=== PATIENT | male | born 1960 | race African-American/Black ===

== ENCOUNTER 2019-09-01 15:20 | Inpatient (IN) | payer OTHER ==
[~2019-09-01] VITALS: Ht 177.8 cm; Wt 109.3 kg
[~2019-09-01 15:20] MED LIST: AMIL5TAB8 PO; ATOR20TA PO; CLOP75TA4 PO; LISI10TA5 PO; LISI40TA4 PO; LOVA20TA2 PO; METF-416 PO
[2019-09-01] MEDS ORDERED: ONDANSETRON HCL 4MG/2ML INJ IV STA (17:15)
[2019-09-01] MEDS ORDERED: SODIUM CHLORIDE 0.9% 1000ML BAG (SEPSIS BOLUS) IV ONE (17:15)
[2019-09-01] MEDS ORDERED: MORPHINE SULFATE 4 MG/ML CPJ (NOT FOR IM USE) IV STA (17:15)
[2019-09-01] MEDS ORDERED: KETOROLAC 30MG/ML VIAL IV STA (17:15)
[2019-09-01] MEDS ORDERED: LEVOFLOXACIN 750MG PREMIX 150 ML IV ONE (17:15)
[2019-09-01 17:35] LABS: CHLORIDE 102 mEq/L (98-107); HEMATOCRIT. 35.1 % (42.0-52.0); HEMOGLOBIN. 11.3 g/dL (14.0-18.0); MEAN CORPUSCULAR VOLUME 89.7 fL (80.0-94.0); MEAN PLATELET VOLUME 9.7 fl (7.4-10.4); PLATELET 187 x1000/uL (130-400); RED BLOOD CELL COUNT 3.91 mill/uL (4.7-6.1); RED CELL DISTRIBUTION WIDTH 13.7 % (11.6-14.6)
[2019-09-01 17:37] LABS: PROTHROMBIN TIME 10.6 sec (9.6-11.0)
[2019-09-01 17:53] LABS: PLATELET ESTIMATE NORMAL
[2019-09-01 19:45] LABS: CLARITY URINE CLOUDY (CLEAR); COLOR URINE YELLOW (YELLOW); KETONES URINE NEGATIVE (NEGATIVE); LEUKOCYTE ESTERASE URINE TRACE (NEGATIVE); NITRITE URINE NEGATIVE (NEGATIVE); OCCULT BLOOD URINE 1+ (NEGATIVE); PROTEIN URINE 1+ (NEGATIVE); SPECIFIC GRAVITY URINE 1.029 (1.005-1.030)
[2019-09-01] MEDS ORDERED: ACETAMINOPHEN 650MG/20.3ML UDC PO ONE (19:45)
[2019-09-01] MEDS ORDERED: GUAIFENESIN 200MG/10ML SUGAR FREE UDC PO PRN (21:30)
[2019-09-01] MEDS ORDERED: PIPERACILLIN/TAZ 3.375G PREMIX 50 ML IV SCH (21:30)
[2019-09-01] MEDS ORDERED: ONDANSETRON HCL 4MG/2ML INJ IV PRN (21:30)
[2019-09-01] MEDS ORDERED: IPRATROPIUM/ALBUTEROL 0.5-3(2.5)MG/3ML NEB NEB PRN (21:30)
[2019-09-01] MEDS ORDERED: LORAZEPAM 2MG/ML CPJ IV PRN (21:30)
[2019-09-01] MEDS ORDERED: DOCUSATE SODIUM 100MG CAPSULE PO PRN (21:30)
[2019-09-01] MEDS ORDERED: DIPHENHYDRAMINE 50MG/ML VIAL IV PRN (21:30)
[2019-09-01] MEDS ORDERED: NA PHOS,M-B/NA PHOS,DI-BA ENEMA 118ML PR PRN (21:30)
[2019-09-01] MEDS ORDERED: INSULIN LISPRO 100 UNITS/ML SUBCUT ONE (21:45)
[2019-09-01] MEDS ORDERED: MORPHINE SULFATE 2 MG/ML CPJ (NOT FOR IM USE) IV PRN (22:22)
[2019-09-01 22:24] VITALS: BP 124/61
[2019-09-01 22:30] VITALS: BP 132/61
[2019-09-01] MEDS ORDERED: DEXTROSE 50% WATER 50ML SYRINGE IV PRN (23:15)
[2019-09-01] MEDS: SODIUM CHLORIDE 0.45% 1,000 ML IV SCH (23:28)
[2019-09-01] MEDS: PIPERACILLIN/TAZOBACTAM 3.375 G in DEXT 5% WATER 100 ML IV SCH (23:28)
[2019-09-01 23:51] LABS: CHLORIDE 110 mEq/L (98-107)
[2019-09-02] VITALS (12 sets, daily range): BP systolic 99–169; BP diastolic 60–106
[2019-09-02] MEDS: IPRATROPIUM BROMIDE (0.02%) 0.5MG/2.5ML NEB HHN SCH (01:01)
[2019-09-02] MEDS: CLONIDINE 0.1MG TABLET PO PRN ×2 (03:59→13:41)
[2019-09-02] MEDS: ACETAMINOPHEN 325MG TABLET PO PRN ×3 (05:49→18:47)
[2019-09-02] MEDS ORDERED: DEXTROSE 50% WATER 50ML SYRINGE IV PRN (06:45)
[2019-09-02] MEDS: PIPERACILLIN/TAZOBACTAM 3.375 G in DEXT 5% WATER 100 ML IV SCH ×3 (06:52→20:43)
[2019-09-02] MEDS ORDERED: BLOOD SUGAR DIAGNOSTIC STRIP TEST SCH (07:30)
[2019-09-02] MEDS: BLOOD SUGAR DIAGNOSTIC STRIP TEST SCH ×4 (07:40→20:32)
[2019-09-02] MEDS ORDERED: INSULIN LISPRO 100 UNITS/ML SUBCUT SCH (08:00)
[2019-09-02] MEDS: ASPIRIN 81MG EC TABLET PO SCH (08:29)
[2019-09-02] MEDS: ENOXAPARIN 30MG/0.3ML SYR SUBCUT SCH ×2 (08:29→20:44)
[2019-09-02] MEDS: INSULIN LISPRO 100 UNITS/ML SUBCUT SCH ×4 (08:31→20:43)
[2019-09-02 12:15] LABS: HEMATOCRIT. 32.6 % (42.0-52.0); HEMOGLOBIN. 10.4 g/dL (14.0-18.0); MEAN CORPUSCULAR HEMOGLOBIN 28.8 pg (28.0-32.0); MEAN CORPUSCULAR VOLUME 89.9 fL (80.0-94.0); PLATELET 170 x1000/uL (130-400); RED BLOOD CELL COUNT 3.63 mill/uL (4.7-6.1); RED CELL DISTRIBUTION WIDTH 13.6 % (11.6-14.6)
[2019-09-02 12:57] LABS: CHLORIDE 107 mEq/L (98-107)
[2019-09-02 13:05] LABS: HDL CHOLESTEROL 17 mg/dL (40-59)
[2019-09-02 13:10] LABS: LDL CHOLESTEROL 68 mg/dL (5-100)
[2019-09-02 13:12] LABS: T4 FREE 1.27 ng/dL (0.76-1.46)
[2019-09-02] MEDS: HYDRALAZINE HCL 50MG TABLET PO SCH ×2 (13:42→20:44)
[2019-09-02] MEDS: HYDROCODONE/ACETAMINOPHEN 5/325MG TABLET PO PRN (13:43)
[2019-09-02] MEDS: SODIUM CHLORIDE 0.45% 1,000 ML IV SCH (13:45)
[2019-09-02] MEDS: CLOPIDOGREL 75MG TABLET PO SCH (13:45)
[2019-09-02 15:24] LABS: PLATELET ESTIMATE NORMAL
[2019-09-02] MEDS ORDERED: AMILORIDE HCL 5 MG TABLET PO SCH (16:00)
[2019-09-02 16:33] LABS: CREATINE KINASE 169 IU/L (39-308)
[2019-09-02 16:34] LABS: CREATINE KINASE MB FRACTION < 1.0 ng/mL (0.5-3.6)
[2019-09-02] MEDS: LISINOPRIL 40MG TABLET PO SCH (16:35)
[2019-09-02] MEDS: ATORVASTATIN CALCIUM 20MG TABLET PO SCH (20:43)
[2019-09-02] MEDS: GUAIFENESIN 600MG ER TABLET PO SCH (20:44)
[2019-09-03] VITALS (11 sets, daily range): BP systolic 92–155; BP diastolic 55–95
[2019-09-03] MEDS: ACETAMINOPHEN 325MG TABLET PO PRN ×2 (05:03→20:43)
[2019-09-03] MEDS: PIPERACILLIN/TAZOBACTAM 3.375 G in DEXT 5% WATER 100 ML IV SCH ×3 (05:03→21:58)
[2019-09-03] MEDS: SODIUM CHLORIDE 0.45% 1,000 ML IV SCH ×2 (05:04→16:48)
[2019-09-03] MEDS: HYDRALAZINE HCL 50MG TABLET PO SCH ×3 (05:04→22:00)
[2019-09-03 07:05] LABS: BASOPHILS % 0.7 % (0.0-2.0); EOSINOPHILS % 0.6 % (0.0-5.0); HEMATOCRIT. 30.5 % (42.0-52.0); HEMOGLOBIN. 9.9 g/dL (14.0-18.0); LYMPHOCYTES % 7.9 % (20.0-50.0); MEAN CORPUSCULAR HEMOGLOBIN 28.9 pg (28.0-32.0); MEAN CORPUSCULAR VOLUME 88.8 fL (80.0-94.0); MEAN PLATELET VOLUME 9.9 fl (7.4-10.4); MONOCYTES % 12.3 % (2.0-8.0); NEUTROPHILS % 78.5 % (40.0-76.0); PLATELET 177 x1000/uL (130-400); RED BLOOD CELL COUNT 3.43 mill/uL (4.7-6.1); RED CELL DISTRIBUTION WIDTH 13.6 % (11.6-14.6)
[2019-09-03 07:16] LABS: CHLORIDE 109 mEq/L (98-107)
[2019-09-03 07:30] LABS: CREATINE KINASE MB FRACTION < 1.0 ng/mL (0.5-3.6)
[2019-09-03] MEDS: BLOOD SUGAR DIAGNOSTIC STRIP TEST SCH ×4 (07:30→21:00)
[2019-09-03] MEDS: IPRATROPIUM BROMIDE (0.02%) 0.5MG/2.5ML NEB HHN SCH ×3 (08:00→12:47)
[2019-09-03] MEDS ORDERED: AMILORIDE HCL 5 MG TABLET PO SCH (09:00)
[2019-09-03] MEDS: ASPIRIN 81MG EC TABLET PO SCH (09:56)
[2019-09-03] MEDS: GUAIFENESIN 600MG ER TABLET PO SCH ×2 (09:56→20:42)
[2019-09-03] MEDS: LISINOPRIL 40MG TABLET PO SCH (09:57)
[2019-09-03] MEDS: ENOXAPARIN 30MG/0.3ML SYR SUBCUT SCH (09:57)
[2019-09-03] MEDS: INSULIN LISPRO 100 UNITS/ML SUBCUT SCH ×4 (09:58→20:45)
[2019-09-03] MEDS: CLOPIDOGREL 75MG TABLET PO SCH (10:00)
[2019-09-03] MEDS: ATORVASTATIN CALCIUM 20MG TABLET PO SCH (20:42)
[2019-09-03] MEDS: IPRATROPIUM/ALBUTEROL 0.5-3(2.5)MG/3ML NEB HHN SCH (21:44)
[2019-09-04] VITALS (10 sets, daily range): BP systolic 117–175; BP diastolic 58–101
[2019-09-04] MEDS: IPRATROPIUM/ALBUTEROL 0.5-3(2.5)MG/3ML NEB HHN SCH ×4 (02:51→20:59)
[2019-09-04] MEDS: SODIUM CHLORIDE 0.45% 1,000 ML IV SCH ×2 (03:47→16:40)
[2019-09-04] MEDS: HYDROCODONE/ACETAMINOPHEN 5/325MG TABLET PO PRN ×3 (03:53→18:59)
[2019-09-04] MEDS: HYDRALAZINE HCL 50MG TABLET PO SCH ×3 (05:39→21:37)
[2019-09-04] MEDS: PIPERACILLIN/TAZOBACTAM 3.375 G in DEXT 5% WATER 100 ML IV SCH ×3 (05:39→21:37)
[2019-09-04 07:44] LABS: BASOPHILS % 0.6 % (0.0-2.0); HEMOGLOBIN. 10.1 g/dL (14.0-18.0); LYMPHOCYTES % 12.7 % (20.0-50.0); MEAN CORPUSCULAR HEMOGLOBIN 28.9 pg (28.0-32.0); MEAN CORPUSCULAR VOLUME 89.1 fL (80.0-94.0); MEAN PLATELET VOLUME 9.9 fl (7.4-10.4); MONOCYTES % 12.9 % (2.0-8.0); NEUTROPHILS % 71.8 % (40.0-76.0); PLATELET 199 x1000/uL (130-400); RED BLOOD CELL COUNT 3.48 mill/uL (4.7-6.1); RED CELL DISTRIBUTION WIDTH 13.7 % (11.6-14.6)
[2019-09-04] MEDS: BLOOD SUGAR DIAGNOSTIC STRIP TEST SCH ×4 (08:20→21:37)
[2019-09-04] MEDS: INSULIN LISPRO 100 UNITS/ML SUBCUT SCH ×4 (08:32→21:38)
[2019-09-04 09:07] LABS: COMPLEMENT C3 172 mg/dL (82-167)
[2019-09-04] MEDS: MAGNESIUM/ALUMINUM HYDROXIDE/SIMETHICONE 30ML UDC PO PRN (10:39)
[2019-09-04] MEDS: LISINOPRIL 40MG TABLET PO SCH (10:40)
[2019-09-04] MEDS: GUAIFENESIN 600MG ER TABLET PO SCH ×2 (10:40→21:37)
[2019-09-04] MEDS: ASPIRIN 81MG EC TABLET PO SCH (10:41)
[2019-09-04] MEDS: CLOPIDOGREL 75MG TABLET PO SCH (10:48)
[2019-09-04 13:09] LABS: ANTI-NUCLEAR ANTIBODIES DIRECT Negative (Negative)
[2019-09-04] MEDS: CLONIDINE 0.1MG TABLET PO PRN (17:36)
[2019-09-04] MEDS: ATORVASTATIN CALCIUM 20MG TABLET PO SCH (21:37)
[2019-09-04] MEDS: INSULIN GLARGINE UD 100 UNITS/ML SYR SUBCUT SCH (21:38)
[2019-09-05] VITALS (13 sets, daily range): BP systolic 141–187; BP diastolic 66–135
[2019-09-05] MEDS: IPRATROPIUM/ALBUTEROL 0.5-3(2.5)MG/3ML NEB HHN SCH ×4 (01:56→21:31)
[2019-09-05] MEDS: HYDROCODONE/ACETAMINOPHEN 5/325MG TABLET PO PRN (04:42)
[2019-09-05] MEDS: PIPERACILLIN/TAZOBACTAM 3.375 G in DEXT 5% WATER 100 ML IV SCH (05:14)
[2019-09-05] MEDS: HYDRALAZINE HCL 50MG TABLET PO SCH ×3 (05:14→21:35)
[2019-09-05] MEDS: SODIUM CHLORIDE 0.45% 1,000 ML IV SCH (06:36)
[2019-09-05] MEDS: BLOOD SUGAR DIAGNOSTIC STRIP TEST SCH ×4 (06:36→21:35)
[2019-09-05] MEDS: GUAIFENESIN 600MG ER TABLET PO SCH ×2 (09:17→21:34)
[2019-09-05] MEDS: ASPIRIN 81MG EC TABLET PO SCH (09:17)
[2019-09-05] MEDS: CLOPIDOGREL 75MG TABLET PO SCH (09:17)
[2019-09-05] MEDS: LISINOPRIL 40MG TABLET PO SCH (09:20)
[2019-09-05] MEDS: INSULIN LISPRO 100 UNITS/ML SUBCUT SCH ×4 (09:23→21:46)
[2019-09-05] MEDS ORDERED: MEROPENEM 1,000 MG in SODIUM CHLORIDE 0.9% 100 ML IV SCH (10:15)
[2019-09-05] MEDS: CLONIDINE 0.1MG TABLET PO PRN ×2 (11:20→17:55)
[2019-09-05] MEDS: MEROPENEM 500MG in NORMAL SALINE 50ML IV SCH ×2 (11:21→21:34)
[2019-09-05 15:35] LABS: HEMATOCRIT 34.4 % (42.0-52.0); MEAN CORPUSCULAR HEMOGLOBIN 28.8 pg (28.0-32.0); MEAN CORPUSCULAR VOLUME 89.8 fL (80.0-94.0); PLATELET 223 x1000/uL (130-400); RED BLOOD CELL COUNT 3.83 mill/uL (4.7-6.1)
[2019-09-05] MEDS: ATORVASTATIN CALCIUM 20MG TABLET PO SCH (21:35)
[2019-09-05] MEDS: INSULIN GLARGINE UD 100 UNITS/ML SYR SUBCUT SCH (21:47)
[2019-09-06] VITALS (14 sets, daily range): BP systolic 130–185; BP diastolic 60–94
[2019-09-06] MEDS: IPRATROPIUM/ALBUTEROL 0.5-3(2.5)MG/3ML NEB HHN SCH ×4 (02:00→21:12)
[2019-09-06] MEDS: MEROPENEM 500MG in NORMAL SALINE 50ML IV SCH ×3 (05:19→21:18)
[2019-09-06] MEDS: HYDRALAZINE HCL 50MG TABLET PO SCH ×3 (05:19→21:19)
[2019-09-06] MEDS: HYDROCODONE/ACETAMINOPHEN 5/325MG TABLET PO PRN (06:35)
[2019-09-06] MEDS: BLOOD SUGAR DIAGNOSTIC STRIP TEST SCH ×4 (06:36→21:29)
[2019-09-06 06:46] LABS: HEMATOCRIT. 33.3 % (42.0-52.0); HEMOGLOBIN. 10.8 g/dL (14.0-18.0); MEAN CORPUSCULAR HEMOGLOBIN 29.2 pg (28.0-32.0); MEAN CORPUSCULAR VOLUME 89.7 fL (80.0-94.0); MEAN PLATELET VOLUME 9.5 fl (7.4-10.4); PLATELET 233 x1000/uL (130-400); RED BLOOD CELL COUNT 3.71 mill/uL (4.7-6.1); RED CELL DISTRIBUTION WIDTH 13.8 % (11.6-14.6)
[2019-09-06 07:08] LABS: PHOSPHORUS 3.7 mg/dL (2.5-4.9)
[2019-09-06 08:37] LABS: NUCLEATED RED BLOOD CELLS 1 /100 WBC; PLATELET ESTIMATE NORMAL
[2019-09-06] MEDS: CLOPIDOGREL 75MG TABLET PO SCH (08:37)
[2019-09-06] MEDS: GUAIFENESIN 600MG ER TABLET PO SCH ×2 (08:37→21:19)
[2019-09-06] MEDS: INSULIN LISPRO 100 UNITS/ML SUBCUT SCH ×4 (08:38→21:20)
[2019-09-06] MEDS: ASPIRIN 81MG EC TABLET PO SCH (08:38)
[2019-09-06] MEDS: LISINOPRIL 40MG TABLET PO SCH (08:39)
[2019-09-06] MEDS: CLONIDINE 0.1MG TABLET PO PRN ×2 (13:23→18:40)
[2019-09-06] MEDS: ATORVASTATIN CALCIUM 20MG TABLET PO SCH (21:19)
[2019-09-06] MEDS: INSULIN GLARGINE UD 100 UNITS/ML SYR SUBCUT SCH (21:20)
[2019-09-07] VITALS (12 sets, daily range): BP systolic 115–153; BP diastolic 47–86
[2019-09-07] MEDS: IPRATROPIUM/ALBUTEROL 0.5-3(2.5)MG/3ML NEB HHN SCH ×4 (01:22→21:16)
[2019-09-07] MEDS: MEROPENEM 500MG in NORMAL SALINE 50ML IV SCH ×3 (05:20→23:18)
[2019-09-07] MEDS: HYDRALAZINE HCL 50MG TABLET PO SCH ×3 (05:20→23:18)
[2019-09-07] MEDS: MAGNESIUM/ALUMINUM HYDROXIDE/SIMETHICONE 30ML UDC PO PRN (05:32)
[2019-09-07] MEDS: BLOOD SUGAR DIAGNOSTIC STRIP TEST SCH ×4 (06:33→20:18)
[2019-09-07] MEDS: INSULIN LISPRO 100 UNITS/ML SUBCUT SCH ×4 (09:02→20:19)
[2019-09-07] MEDS: ASPIRIN 81MG EC TABLET PO SCH (09:14)
[2019-09-07] MEDS: CLOPIDOGREL 75MG TABLET PO SCH (09:14)
[2019-09-07] MEDS: GUAIFENESIN 600MG ER TABLET PO SCH ×2 (09:14→20:18)
[2019-09-07] MEDS: LISINOPRIL 40MG TABLET PO SCH (09:14)
[2019-09-07] MEDS: CLONIDINE 0.1MG TABLET PO PRN (18:44)
[2019-09-07] MEDS: ATORVASTATIN CALCIUM 20MG TABLET PO SCH (20:18)
[2019-09-07] MEDS: INSULIN GLARGINE UD 100 UNITS/ML SYR SUBCUT SCH (22:00)
[2019-09-08] VITALS (17 sets, daily range): BP systolic 88–159; BP diastolic 33–98
[2019-09-08] MEDS: IPRATROPIUM/ALBUTEROL 0.5-3(2.5)MG/3ML NEB HHN SCH ×3 (01:53→15:02)
[2019-09-08] MEDS: MEROPENEM 500MG in NORMAL SALINE 50ML IV SCH ×2 (06:21→13:13)
[2019-09-08] MEDS: HYDRALAZINE HCL 50MG TABLET PO SCH (06:22)
[2019-09-08 06:24] LABS: HEMATOCRIT. 30.4 % (42.0-52.0); HEMOGLOBIN. 9.9 g/dL (14.0-18.0); MEAN CORPUSCULAR HEMOGLOBIN 28.9 pg (28.0-32.0); MEAN CORPUSCULAR VOLUME 88.7 fL (80.0-94.0); MEAN PLATELET VOLUME 9.1 fl (7.4-10.4); PLATELET 259 x1000/uL (130-400); RED BLOOD CELL COUNT 3.43 mill/uL (4.7-6.1); RED CELL DISTRIBUTION WIDTH 13.9 % (11.6-14.6)
[2019-09-08 07:05] LABS: CHLORIDE 115 mEq/L (98-107)
[2019-09-08] MEDS: BLOOD SUGAR DIAGNOSTIC STRIP TEST SCH ×2 (07:30→13:13)
[2019-09-08] MEDS: GUAIFENESIN 600MG ER TABLET PO SCH (08:41)
[2019-09-08] MEDS: ASPIRIN 81MG EC TABLET PO SCH (08:41)
[2019-09-08] MEDS: LISINOPRIL 40MG TABLET PO SCH (08:42)
[2019-09-08] MEDS: INSULIN LISPRO 100 UNITS/ML SUBCUT SCH ×2 (08:44→13:12)
[2019-09-08 10:10] LABS: PLATELET ESTIMATE NORMAL
[2019-09-08] MEDS: CLOPIDOGREL 75MG TABLET PO SCH (10:39)
== END 2019-09-08 15:10 | disposition home or self-care (01) | DRG 720 ==
LOC: ER 15:20 → EDBEDREQSVC 17:34 → 5EST 19:04 → EDBEDREQ 19:12 → ENRESERV 20:26 → 5EST 09-04 11:49
PROVIDERS: ADMIT Internal Medicine; ATTEND Internal Medicine
DX: A41.51 Sepsis due to Escherichia coli [E. coli] (principal); J96.00 Acute respiratory failure, unspecified whether with hypoxia or hypercapnia; E87.2 Acidosis; D64.9 Anemia, unspecified; E86.0 Dehydration; N17.9 Acute kidney failure, unspecified; N39.0 Urinary tract infection, site not specified; E78.5 Hyperlipidemia, unspecified; E87.6 Hypokalemia; E11.22 Type 2 diabetes mellitus with diabetic chronic kidney disease; N18.9 Chronic kidney disease, unspecified; R65.20 Severe sepsis without septic shock; E78.00 Pure hypercholesterolemia, unspecified; B96.20 Unspecified Escherichia coli [E. coli] as the cause of diseases classified elsewhere; K62.5 Hemorrhage of anus and rectum; Z16.12 Extended spectrum beta lactamase (ESBL) resistance; Z96.659 Presence of unspecified artificial knee joint; I12.9 Hypertensive chronic kidney disease with stage 1 through stage 4 chronic kidney disease, or unspecified chronic kidney disease; B97.89 Other viral agents as the cause of diseases classified elsewhere; E66.9 Obesity, unspecified; Z86.73 Personal history of transient ischemic attack (TIA), and cerebral infarction without residual deficits; Z79.899 Other long term (current) drug therapy; Z79.84 Long term (current) use of oral hypoglycemic drugs; Z87.891 Personal history of nicotine dependence; Z68.34 Body mass index [BMI] 34.0-34.9, adult
CPT/HCPCS: 36415; 71045; 76770; 80048; 80061; 81003; 82270; 82550; 82553; 82962; 83036; 83605; 83735; 83880; 84100; 84145; 84439; 84443; 84484; 85027; 85379; 86038; 86160; 87077; 87186; 93005; 93306; 94640; 99291; J1650; J1815; J1885; J1956; J2185; J2270; J2405; J2543; J7030; J7060; J7620